=== PATIENT | female | born 1960 | race Caucasian/White ===

== ENCOUNTER → 2019-03-12 | Outpatient (CLI) | payer OTHER ==
[~2019-03-12] VITALS: Ht 165.1 cm; Wt 71.7 kg
[~2019-03-12] MED LIST: GABAPENTIN100 MG PO; GINKGO BILOBA E60 MG PO; METOPROLOL TART25 MG PO; MOBIC15 MG PO; PROBIOTIC1 EAC1 PO; SINGULAIR 10 MG10 M1 PO; SULFASALAZINE500 M5 PO; SYNTHROID100 MC1 PO; VITAMIN B12-FO1 EAC1 PO; VITAMIN D400 UNIT PO; [UNRECOGNIZED DRUG - OTHER]
--- NOTE | ~2019-03-12 | HPC ---
[facility] [place] [address] PAIN MANAGEMENT CONSULTATION Name: MARILUZ CARTERLINE Room #: REG PING Rosaline#: [id number] Admission: 03/12/19 ������������������ Attend Phys: Nuno Bradford MD Discharge: ������������������ Date of : 60 Report #: [id number] THIS REPORT FOR: //name// CC: Omi Bradford DATE OF SERVICE: 03/12/2019 CHIEF COMPLAINT: Intermittent neck pain radiating into the right shoulder and pain in the right low back with radiation. HISTORY OF PRESENT ILLNESS: The patient is here today complaining of neck pain that has a dermatomal distribution. She has had pain since the 2017. At that time, she began complaining mostly of low back pain on the right. She also had a heavy numbness in her right leg. She was treated with physical therapy, meloxicam and has been somewhat better. Beginning in September and October, she began experiencing pain radiating into her neck and shoulder. She had a loss of mobility of her upper arm and experienced numbness and tingling into her fingers, consistent with a radiculopathy. She saw Dr. Nathaniel Alejandro who performed a shoulder scan and then gave her an injection of triamcinolone, which helped minimally and for a short time. Since that time, she has had persistent burning, shooting pain into the left upper extremity, which she scores as a 3/10. MEDICATIONS: Synthroid, metoprolol, sulfasalazine, meloxicam, Singulair, ginkgo biloba, Gotu Eron probiotic, thyroid, vitamin D and vitamin B12. ALLERGIES: KEFLEX AND DEMEROL. PAST MEDICAL HISTORY: Hypothyroidism, on replacement therapy therapy. She has a history of GERD, but has also developed diarrhea over the last 2-3 years, for which she has been placed on Azulfidine: No diagnosis is provided. She has been evaluated and found to have gallbladder polyps, but no cholecystectomy performed. PAST SURGICAL HISTORY: Hysterectomy in 2002, bladder and colon prolapse repair in 2015. She suffered a traumatic injury with fracture in her ankle in November when she had some weakness with sudden giving out of her left leg. This has not recurred. 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 She denies use of tobacco and enjoys a glass of alcohol in the evening. REVIEW OF SYSTEMS: Positive for fatigue and weakness. She has some [facility] [address] [place] [address] PAIN MANAGEMENT CONSULTATION Name: MARILUZ CARTERLINE Room #: REG [facility]#: [id number] Admission: 03/12/19 ������������������ Attend Phys: Nuno Bradford MD Discharge: ������������������ Date of : 60 Report #: [id number] palpitations and a history now of frequent diarrhea. She reports numbness and tingling in the fingers of the left hand. PHYSICAL EXAMINATION: GENERAL: A pleasant female. She seems sad and a bit depressed about her ongoing pain. VITAL SIGNS: Blood pressure 151/80, heart rate 85 and respirations 14. Five feet 5 inches, 158 pounds and BMI of 26.3. NECK: Cervical range of motion is performed with no significant limitations, other than some increased pain with lateral tilt to the left and also neck extension reproducing pain a bit in the neck and radiating into the shoulder. No palpable masses or adenopathy. CHEST: Clear. CARDIAC: Rhythm is regular. EXTREMITIES: Examination of the upper extremities reveals normal strength in the biceps, triceps, deltoid and label folder strength. Sensation to light touch is intact, although she has subjective numbness and tingling throughout the C5-C6 distribution. Deep tendon reflexes are 2+ biceps, trace triceps bilaterally and there is a decrease in the brachioradialis reflex. This is on the left. Reflexes in the lower extremities are 2+ at the knee and ankle, with no evidence of hyperreflexia to suggest cord compression. MRI scan is reviewed with the patient. It demonstrates a C4-C5 disk extrusion which is creating mass effect on the intrathecal space and moderate spinal stenosis. There is a left-sided neural foraminal narrowing with effacement of the exiting C5 nerve root. IMPRESSION: Cervical radiculopathy. RECOMMENDATIONS: 1. Gentle range of motion for exercise. 2. Consider the use of gabapentin as an initiating medication for neuropathic pain if she waits to see if this will resolve on its own over time. 3. She is a good candidate for cervical epidural. 4. We discussed surgery, which has been approached by Dr. Gonzalez. This would be a last resort. She will consider cervical epidural and has made an appointment for upcoming visit in the next month or so. ��������������������������������������������� ���������������������������������������� By: ��������������������������������������������� 1800 1224 Nuno Bradford MD /nt
[2019-03-12 10:57] VITALS: BP 151/80
--- NOTE | 2019-03-12 11:43 | NUR ---
Pain Clinic Assessment: 1. History of Osteoarthritis: SPINE History of Rheumatoid Arthritis: Not Applicable 2. Height: 5 ft. 5 in. 165.1 cm. Weight: 158.0 lb. oz. 71.668 kg. Patient's BMI: 26.3 3. Vital Signs: BP: 151/80 Pulse: 85 Resp: 14 Temp: 02 Sat: 99 ECG Mon: 4. Pain Intensity: 3 5. Fall Risk: Dizziness: N Needs help standing or walking: N Fallen in the last 3 months: N Fall risk comments: 6. Patient on Blood Thinner: None 7. History of Hypertension: Y 8. Opioid Therapy greater than 6 weeks: N Opiate Contract Signed: 9. Risk Assessment Tool Provided: O-LOW 10. Functional Assessment Tool: 11. Recreational Drug Use: Never Drug Type: Tobacco Use: Never Smoker Tobacco Type: Amount or Packs/day: How Many Years: Alcohol Use: Yes Frequency: Special Occasions Quant:
== END ==
LOC: PAIN 06:56
DX: M54.12 Radiculopathy, cervical region (principal); E03.9 Hypothyroidism, unspecified; K21.9 Gastro-esophageal reflux disease without esophagitis; Z79.899 Other long term (current) drug therapy; Z88.1 Allergy status to other antibiotic agents